=== PATIENT | female | born 1985 ===

== ENCOUNTER 2021-04-12 18:40 | Emergency (ER) | payer SELFPAY ==
[~2021-04-12] VITALS: Ht 147 cm; Wt 63.5 kg
--- NOTE | 2021-04-12 20:22 | ED Abdominal Pain ---
General Chief Complaint: Abdominal/GI Problems Stated Complaint: THROAT PAIN Nursing Triage Note: Pt c/o upper abd pain x3 months, worse today. Source of Information: Patient Exam Limitations: No Limitations (NOLAN JULIO APRN) History of Present Illness Date Seen by Provider: Apr 12, 2021 Time Seen by Provider: 20:19 Initial Comments Finnish-speaking female presents to ER with 2 months of intermittent midline upper abdominal pain that comes at random and is not brought about by any particular food or activity that she can identify. No nausea. Typically she takes ibuprofen and the pain goes away. However this pain started this morning, she has taken ibuprofen without relief of pain. She has not yet sought care for this. This is been ongoing for about 2 months. No diarrhea no vomiting no fever no chills. Timing/Duration: 1-2 Days Severity/Quality: Moderate Location: Epigastric Radiation: No Radiation Activities at Onset: None Associated Symptoms: Nausea/Vomiting (NOLAN JULIO APRN) Allergies and Home Medications Allergies Coded Allergies: No Known Drug Allergies (Verified Allergy, Unknown, 05/20/09) Patient Home Medication List Home Medication List Reviewed: Yes (NOLAN JULIO APRN) Review of Systems Review of Systems Constitutional: see HPI EENTM: No Symptoms Reported Respiratory: No Symptoms Reported Cardiovascular: No Symptoms Reported Gastrointestinal: See HPI, Abdominal Pain Genitourinary: No Symptoms Reported Musculoskeletal: no symptoms reported Skin: no symptoms reported Psychiatric/Neurological: No Symptoms Reported Endocrine: No Symptoms Reported Hematologic/Lymphatic: No Symptoms Reported (NOLAN JULIO APRN) Past Hjgowpp-Gmkqtr-Hohnei Hx Past Medical History Reproductive Disorders: No (NOLAN JULIO APRN) Physical Exam Vital Signs Vital Signs - First Documented 04/12/21 19:06 Temp 37.0 Pulse 91 Resp 18 B/P (MAP) 120/65 (83) Pulse Ox 98 O2 Delivery Room Air (MICHAEL MULLINS MD) Vital Signs Capillary Refill : Less Than 3 Seconds (NOLAN JULIO APRN) Height/Weight/BMI Height: '56" Weight: 124lbs. oz. 56.186630nb; 29.00 BMI Method: General Appearance: WD/WN, no apparent distress Neck: non-tender, full range of motion Respiratory: no respiratory distress, no accessory muscle use Gastrointestinal: normal bowel sounds, soft, tenderness Extremities: normal range of motion, non-tender Neurologic/Psychiatric: alert, normal mood/affect, oriented x 3 Skin: normal color, warm/dry (NOLAN JULIO APRN) Progress/Results/Core Measures Results/Orders Lab Results Laboratory Tests Test 04/12/21 21:50 04/12/21 23:15 Range/Units White Blood Count 7.6 4.3-11.0 10^3/uL Red Blood Count 4.18 3.80-5.11 10^6/uL Hemoglobin 8.9 L 11.5-16.0 g/dL Hematocrit 30 L 35-52 % Mean Corpuscular Volume 72 L 80-99 fL Mean Corpuscular Hemoglobin 21 L 25-34 pg Mean Corpuscular Hemoglobin Concent 30 L 32-36 g/dL Red Cell Distribution Width 15.8 H 10.0-14.5 % Platelet Count 338 130-400 10^3/uL Mean Platelet Volume 10.0 9.0-12.2 fL Immature Granulocyte % (Auto) 0 % Neutrophils (%) (Auto) 40 L 42-75 % Lymphocytes (%) (Auto) 32 12-44 % Monocytes (%) (Auto) 6 0-12 % Eosinophils (%) (Auto) 22 H 0-10 % Basophils (%) (Auto) 1 0-10 % Neutrophils # (Auto) 3.1 1.8-7.8 10^3/uL Lymphocytes # (Auto) 2.4 1.0-4.0 10^3/uL Monocytes # (Auto) 0.4 0.0-1.0 10^3/uL Eosinophils # (Auto) 1.7 H 0.0-0.3 10^3/uL Basophils # (Auto) 0.1 0.0-0.1 10^3/uL Immature Granulocyte # (Auto) 0.0 0.0-0.1 10^3/uL Neutrophils % (Manual) 57 % Lymphocytes % (Manual) 25 % Monocytes % (Manual) 3 % Eosinophils % (Manual) 15 % Basophils % (Manual) 0 % Band Neutrophils 0 % Hypochromasia SLIGHT Anisocytosis SLIGHT Microcytosis SLIGHT Macrocytosis SLIGHT Rouleau SLIGHT Sodium Level 139 135-145 MMOL/L Potassium Level 4.1 3.6-5.0 MMOL/L Chloride Level 109 H 98-107 MMOL/L Carbon Dioxide Level 20 L 21-32 MMOL/L Anion Gap 10 5-14 MMOL/L Blood Urea Nitrogen 7 7-18 MG/DL Creatinine 0.66 0.60-1.30 MG/DL Estimat Glomerular Filtration Rate 103 BUN/Creatinine Ratio 11 Glucose Level 116 H 70-105 MG/DL Calcium Level 9.5 8.5-10.1 MG/DL Corrected Calcium 9.4 8.5-10.1 MG/DL Total Bilirubin 0.3 0.1-1.0 MG/DL Aspartate Amino Transf (AST/SGOT) 14 5-34 U/L Alanine Aminotransferase (ALT/SGPT) 20 0-55 U/L Alkaline Phosphatase 83 40-136 U/L Total Protein 7.2 6.4-8.2 GM/DL Albumin 4.1 3.2-4.5 GM/DL Lipase 31 8-78 U/L Serum Test, Qualitative NEGATIVE NEGATIVE Urine Color YELLOW Urine Clarity CLEAR Urine pH 6.0 5-9 Urine Specific Lawson 1.015 L 1.016-1.022 Urine Protein NEGATIVE NEGATIVE Urine Glucose (UA) NEGATIVE NEGATIVE Urine Ketones NEGATIVE NEGATIVE Urine Nitrite NEGATIVE NEGATIVE Urine Bilirubin NEGATIVE NEGATIVE Urine Urobilinogen 0.2 < = 1.0 MG/DL Urine Leukocyte Esterase NEGATIVE NEGATIVE Urine RBC (Auto) 1+ H NEGATIVE Urine RBC RARE /HPF Urine WBC NONE /HPF Urine Squamous Epithelial Cells RARE /HPF Urine Crystals NONE /LPF Urine Bacteria TRACE /HPF Urine Casts NONE /LPF Urine Mucus NEGATIVE /LPF Urine Culture Indicated NO (MICHAEL MULLINS MD) My Orders Orders - MICHAEL MULLINS MD Fentanyl Inj (Sublimaze Injection) (04/13/21 00:30) Lidocaine 2% Viscous 15 Ml (Xylocaine Vi (04/13/21 00:30) Mylanta Po (04/13/21 00:30) Pepcid 20 Mg Iv (04/13/21 00:30) Pantoprazole Injection (Protonix Injecti (04/13/21 00:30) (MICHAEL MULLINS MD) Medications Given in ED Current Medications Medications Dose Ordered Sig/Luis Eduardo Route Start Time Stop Time Status Last Admin Dose Admin Fentanyl Citrate 50 mcg ONCE ONCE IVP 04/12/21 21:30 04/12/21 21:31 DC 04/12/21 22:11 50 MCG Iohexol 100 ml ONCE ONCE IV 04/12/21 23:45 04/12/21 23:46 DC 04/12/21 23:46 80 ML Sodium Chloride 100 ml ONCE ONCE IV 04/12/21 23:45 04/12/21 23:46 DC 04/12/21 23:46 80 ML (MICHAEL MULLINS MD) Vital Signs/I&O 04/12/21 19:06 Temp 37.0 Pulse 91 Resp 18 B/P (MAP) 120/65 (83) Pulse Ox 98 O2 Delivery Room Air (MICHAEL MULLINS MD) Blood Pressure Mean: 83 Progress Progress Note : Progress Note Assumed care of the patient from Nolan Julio APRN at [address] Monitor patient. 0032: CT negative. Patient's pain is better after initial dose of fentanyl but still there. Repeat fentanyl 50 mcg IV as well as we will give Pepcid 20 mg IV, Protonix 40 mg IV and GI cocktail. Turns out that she takes quite a bit of ibuprofen and I believe pain is related to the ulcerative condition. She was instructed to stop taking ibuprofen. We will initiate outpatient omeprazole [id number] and can you continue that for 6 weeks. I also discussed with her the importance of follow-up especially with her hemoglobin at 8.9 and consideration of this upper GI pain. She states that she will. Discharged home with return precautions. Patient and family verbalized understanding of instructions and agreement with plan. (MICHAEL MULLINS MD) Diagnostic Imaging Diagonstic Imaging: CT Plain Films/CT/US/NM/MRI: abdomen, pelvis Comments [facility], [place] NAME: SHAZIA GARCIA [facility] REC#: [id number] PT STATUS: REG ER : 1985 PHYSICIAN: NOLAN JULIO APRN ADMIT DATE: 04/12/21/ER Signed Date of Exam:04/12/21 CT ABDOMEN/PELVIS W PROCEDURE: CT abdomen and pelvis with contrast. TECHNIQUE: Multiple contiguous axial images were obtained through the abdomen and pelvis after administration of intravenous contrast. Auto Exposure Controls were utilized during the CT exam to meet ALARA standards for radiation dose reduction. All CT scans use one or more of the following dose optimizing techniques: automated exposure control, MA and/or KvP adjustment based on patient size and exam type or iterative reconstruction. INDICATION: Upper abdominal pain increasing over the past 3 months The lung bases are clear. Liver appears normal. The gallbladder appears normal. Pancreas appears normal. Spleen appears normal. Adrenals appear normal. Kidneys appear normal. Small bowel appears normal. Appendix appears normal. Colon appears normal. Uterus and ovaries appear normal. Urinary bladder is normal. There is no intraperitoneal free air or free fluid. Aorta and IVC appear normal. IMPRESSION: Negative CT abdomen and pelvis Dictated by: Dictated on workstation # [id number] Dict: 04/12/212347 Trans: 04/12/212348 TCB [id number] Interpreted by: MICHAEL BAPTISTE MD Electronically signed by: MICHAEL BAPTISTE MD 04/12/212348 (MICHAEL MULLINS MD) Departure Impression Primary Impression: Upper abdominal pain Disposition: 01 HOME, SELF-CARE Condition: Improved Departure-Patient Inst. Decision time for Depature: 00:33 (MICHAEL MULLINS MD) Referrals: NO,LOCAL PHYSICIAN (PCP/Family) Primary Care Physician Patient Instructions: Peptic Ulcers (DC), Severe Abdominal Pain, Adult (DC) Add. Discharge Instructions: All discharge instructions reviewed with patient and/or family. Voiced understanding. You should initiate [id number] omeprazole 20 mg daily. You may purchase this [id number] in 6-week pack (42 tablets). Take this for the full 6 weeks. You may also take Pepcid (famotidine) 20 mg once or twice daily as needed for upset stomach as well. It is very important that you follow-up with your doctor for recheck and further evaluation as your hemoglobin was on the low side at 8.9. You may need upper endoscopy which is a scope to look into your stomach to evaluate for ulcerative disease. Stop taking ibuprofen. You may take Tylenol/acetaminophen 1000 mg every 6-8 hours as needed for pain. Return for worse pain, fever, vomiting, weakness, breathing problems, blood in your vomit or stool, black, tarry stools or other concerns as needed. NOLAN JULIO APRN Apr 12, 2021 20:22 MICHAEL MULLINS MD Apr 13, 2021 00:25
[2021-04-12] MEDS ORDERED: fentaNYL INJ 100 MCG/2 ML AMP IVP ONE (21:30)
[2021-04-12 21:56] LABS: BASOPHILS # (AUTO) 0.1 10^3/uL (0.0-0.1); BASOPHILS % (AUTO) 1 % (0-10); EOSINOPHILS # (AUTO) 1.7 10^3/uL (0.0-0.3); EOSINOPHILS % (AUTO) 22 % (0-10); HEMATOCRIT 30 % (35-52); HEMOGLOBIN 8.9 g/dL (11.5-16.0); LYMPHOCYTES # (AUTO) 2.4 10^3/uL (1.0-4.0); LYMPHOCYTES % (AUTO) 32 % (12-44); MEAN CORPUSCULAR HEMOGLOBIN 21 pg (25-34); MEAN CORPUSCULAR HGB CONC 30 g/dL (32-36); MEAN CORPUSCULAR VOLUME 72 fL (80-99); MONOCYTES # (AUTO) 0.4 10^3/uL (0.0-1.0); MONOCYTES % (AUTO) 6 % (0-12); NEUTROPHILS # (AUTO) 3.1 10^3/uL (1.8-7.8); NEUTROPHILS % (AUTO) 40 % (42-75); PLATELET COUNT 338 10^3/uL (130-400); WHITE BLOOD COUNT 7.6 10^3/uL (4.3-11.0)
[2021-04-12 22:06] LABS: ALBUMIN 4.1 GM/DL (3.2-4.5)
[2021-04-12 22:07] LABS: POTASSIUM 4.1 MMOL/L (3.6-5.0)
[2021-04-12 22:08] LABS: CALCIUM 9.5 MG/DL (8.5-10.1)
[2021-04-12 22:09] LABS: TOTAL PROTEIN 7.2 GM/DL (6.4-8.2)
[2021-04-12 22:11] LABS: BILIRUBIN,TOTAL 0.3 MG/DL (0.1-1.0)
[2021-04-12 22:13] LABS: CREATININE SERUM 0.66 MG/DL (0.60-1.30)
[2021-04-12 22:17] LABS: ANISOCYTOSIS SLIGHT; BAND NEUTROPHILS 0 %; BASOPHILS % (MANUAL) 0 %; EOSINOPHILS % (MANUAL) 15 %; HYPOCHROMASIA SLIGHT; LYMPHOCYTES % (MANUAL) 25 %; MICROCYTOSIS SLIGHT; MONOCYTES % (MANUAL) 3 %; NEUTROPHILS % (MANUAL) 57 %; ROULEAUX SLIGHT
[2021-04-12 23:19] LABS: BILIRUBIN,URINE NEGATIVE (NEGATIVE); CLARITY,URINE CLEAR; COLOR,URINE YELLOW; GLUCOSE, URINE (UA) NEGATIVE (NEGATIVE); KETONES,URINE NEGATIVE (NEGATIVE); LEUKOCYTE ESTERASE ,URINE NEGATIVE (NEGATIVE); NITRITE,URINE NEGATIVE (NEGATIVE); PROTEIN,URINE NEGATIVE (NEGATIVE)
[2021-04-12 23:26] LABS: BACTERIA,URINE TRACE /HPF; RBC,URINE RARE /HPF; SQUAMOUS EPITHELIAL CELL,UR RARE /HPF
[2021-04-12] MEDS ORDERED: IOHEXOL 350 MG/ML 100 ML (OMNIPAQUE 350) VIAL IV ONE (23:45)
[2021-04-12] MEDS ORDERED: HOLD METFORMIN - RECEIVED CONTRAST 20 ML VIAL IV SCH (23:45)
[2021-04-12] MEDS ORDERED: NS 100 ML (IVPB) BAG IV ONE (23:45)
--- NOTE | 2021-04-12 23:51 | Diagnostic Imaging Report ---
PROCEDURE: CT abdomen and pelvis with contrast. TECHNIQUE: Multiple contiguous axial images were obtained through the abdomen and pelvis after administration of intravenous contrast. Auto Exposure Controls were utilized during the CT exam to meet ALARA standards for radiation dose reduction. All CT scans use one or more of the following dose optimizing techniques: automated exposure control, MA and/or KvP adjustment based on patient size and exam type or iterative reconstruction. INDICATION: Upper abdominal pain increasing over the past 3 months The lung bases are clear. Liver appears normal. The gallbladder appears normal. Pancreas appears normal. Spleen appears normal. Adrenals appear normal. Kidneys appear normal. Small bowel appears normal. Appendix appears normal. Colon appears normal. Uterus and ovaries appear normal. Urinary bladder is normal. There is no intraperitoneal free air or free fluid. Aorta and IVC appear normal. IMPRESSION: Negative CT abdomen and pelvis Dictated by: Dictated on workstation # [id number]
[2021-04-13] MEDS ORDERED: ANTACID SUSP 30 ML UDC (MYLANTA) PO ONE (00:30)
[2021-04-13] MEDS ORDERED: FAMOTIDINE 20MG/2ML IV (PEPCID) IV STA (00:30)
[2021-04-13] MEDS ORDERED: PANTOPRAZOLE 40 MG (PROTONIX) VIAL IV ONE (00:30)
[2021-04-13] MEDS ORDERED: fentaNYL INJ 100 MCG/2 ML AMP IVP STA (00:30)
[2021-04-13] MEDS ORDERED: LIDOCAINE 2% VISCOUS 15 ML UDC PO ONE (00:30)
[2021-04-13] MEDS ORDERED: ONDANSETRON 4 MG/2 ML (SDV) Z0FRAN ONE (01:03)
[2021-04-13 01:15] VITALS: BP 128/74
[2021-04-13] MEDS ORDERED: ONDANSETRON 4 MG/2 ML (SDV) Z0FRAN IVP ONE (01:15)
== END 2021-04-13 01:15 | disposition home or self-care (01) ==
LOC: EDUNIT# 18:40 → ER 18:45
DX: R10.10 Upper abdominal pain, unspecified (principal); R10.13 Epigastric pain
CPT/HCPCS: 36415; 74177; 80053; 81000; 83690; 84703; 85007; 85027; 96374; 96375; 96376